=== PATIENT | male | born 2000 | race Caucasian/White ===

== ENCOUNTER 2021-01-08 12:09 | Emergency (ER) | payer SELFPAY ==
[~2021-01-08] VITALS: Ht 177.8 cm; Wt 74.8 kg
[2021-01-08 12:22] VITALS: BP 136/91
[2021-01-08] MEDS ORDERED: NACL 0.9% 1,000 ML IV ONE ×2 (12:30→13:50)
[2021-01-08] MEDS ORDERED: ONDANSETRON 4 MG/2 ML VIAL IVP ONE ×2 (12:30→14:05)
[2021-01-08] MEDS ORDERED: ACETAMINOPHEN EXTRA STRENGTH 500 MG TAB PO ONE (12:35)
--- NOTE | 2021-01-08 12:38 | NUR ---
20 YEAR OLD MALE COMPLAINS OF COVID 19 SYMPTOMS AFTER GETTING 1ST COVID VACCINE ON SUNDAY. PT STATES SYMPTOMS STARTED SUNDAY NIGHT INCLUDING DIARRHEA, FEVER, SOB, HEADACHE, DECREASED APPETITE, BODYACHE. IN ED, PT FEBRILE AT 103.2, PT TACHY AT 12O BR/MIN, SATURATING AT 98@ ON RA. CLEAR BREATH SOUNDS. ERMD MADE AWARE OF PT STATUS. PMH - DENIES NKA
--- NOTE | 2021-01-08 13:13 | NUR ---
SAVANNA AND NOVEL SWABS DONE. HANDED TO KAILA BUSTILLO.
--- NOTE | 2021-01-08 13:16 | NUR ---
RAD AT BEDSIDE
[2021-01-08 13:21] LABS: BASOPHILS # (AUTO) 0.2 K/uL (0.00-0.22); HEMATOCRIT 46.8 % (36-52); LYMPHOCYTES # (AUTO) 1.1 K/uL (2.0-11.5); LYMPHOCYTES % (AUTO) 33.6 % (20.5-51.1); MEAN CORPUSCULAR HEMOGLOBIN 30 pg (27-31); MEAN CORPUSCULAR HGB CONC 34 g/dL (33-37); MEAN CORPUSCULAR VOLUME 87.5 fL (80-94); MONOCYTES # (AUTO) 0.2 K/uL (0.8-1.0); MONOCYTES % (AUTO) 6.3 % (1.7-9.3); NEUTROPHILS # (AUTO) 1.7 K/uL (1.8-7.7); NEUTROPHILS % (AUTO) 55.1 % (42.2-75.2); PLATELET COUNT (AUTO) 129 K/uL (140-450); RED BLOOD CELL COUNT(AUTO) 5.35 MIL/uL (4.20-6.10); RED CELL DISTRIBUTION WIDTH 13.4 % (11.6-13.7); WHITE BLOOD COUNT (AUTO) 3.2 K/uL (4.5-11.0)
[2021-01-08 13:34] LABS: ALBUMIN 3.6 g/dL (3.4-5.0); ANION GAP 11.6 (8-16); CARBON DIOXIDE 25.3 mmol/L (21-32); CREATININE 0.9 mg/dL (0.6-1.3); POTASSIUM 3.9 mmol/L (3.5-5.1); TOTAL BILIRUBIN 0.4 mg/dL (0.0-1.0)
[2021-01-08] MEDS ORDERED: ONDA-24 PO (13:48)
[2021-01-08] MEDS ORDERED: LOPE-143 PO (13:48)
[2021-01-08] MEDS ORDERED: ACET-2619 PO (13:48)
[2021-01-08 14:39] VITALS: BP 136/91
--- NOTE | 2021-01-08 14:40 | NUR ---
Patient discharged with v/s stable. Written and verbal after care instructions given and explained. Patient alert, oriented and verbalized understanding of instructions. Ambulatory with steady gait. All questions addressed prior to discharge. ID band removed. Patient advised to follow up with PMD. Rx of ACETAMINOPHEN, LOPERAMIDE, ONDANSETRON given. Patient educated on indication of medication including possible reaction and side effects. Opportunity to ask questions provided and answered.
--- NOTE | 2021-01-11 13:58 | NUR ---
+ SYLVIE RESULS RECEIVED FROM LAB. WAITING FOR HARD COPY.
== END 2021-01-08 14:40 | disposition home or self-care (01) ==
LOC: MED 12:09
DX: U07.1 COVID-19 (principal); Z79.899 Other long term (current) drug therapy
CPT/HCPCS: 36415; 71045; 80053; 85025; 87426; 96361; 96374; 99284; J2405; J7030; U0003